=== PATIENT | male | born 1975 | race Caucasian/White ===

== ENCOUNTER 2018-03-08 18:35 | Emergency (ER) | payer MEDICARE, MEDICAID ==
--- NOTE | 2018-03-08 19:01 | EDM.PDOC ---
ED HPI GENERAL MEDICAL PROBLEM - General Chief Complaint: Chest Pain Stated Complaint: ABD AND CHEST [id number] Time Seen by Provider: 03/08/18 18:59 Source of Information: Reports: Patient History Limitations: Reports: No Limitations - History of Present Illness INITIAL COMMENTS - FREE TEXT/NARRATIVE: 4 days h/o bilateral chest pains constant ache non pleuritic, smoker, localized no radiation. appetite normal Abdomen Pain Score (Numeric/FACES): 4 Chest Pain Score (Numeric/FACES): 3 - Related Data Allergies Allergy/AdvReac Type Severity Reaction Status Date / Time Penicillins Allergy Cannot Verified 05/26/16 12:22 Remember Home Meds: Home Meds Ibuprofen 600 mg PO Q8H PRN 03/08/18 [History] diphenhydrAMINE [Benadryl] 25 mg PO Q6H PRN 03/08/18 [History] Past Medical History Other HEENT History: ear surgery to open ear canal Social & Family History - Family History Family Medical History: Noncontributory - Tobacco Use Smoking Status *Q: Current Every Day Smoker Years of Tobacco use: 20 Packs/Tins Daily: 1 - Recreational Drug Use Recreational Drug Use: No - Living Situation & Occupation Living situation: Reports: Single, Alone ED ROS GENERAL - Review of Systems Review Of Systems: ROS reveals no pertinent complaints other than HPI. ED EXAM, GENERAL - Physical Exam Exam: See Below Exam Limited By: No Limitations General Appearance: Alert, WD/WN, No Apparent Distress Ears: Hearing Grossly Normal Throat/Mouth: Normal Voice, No Airway Compromise Head: Atraumatic Neck: Non-Tender, Full Range of Motion Respiratory/Chest: No Respiratory Distress, Lungs Clear, Normal Breath Sounds Cardiovascular: Regular Rate, Rhythm GI/Abdominal: Soft, Non-Tender Extremities: No Pedal Edema Neurological: Alert, Oriented, Normal Cognition, Normal Gait, No Motor/Sensory Deficits Psychiatric: Normal Affect, Normal Mood Skin Exam: Warm, Dry, Normal Color Lymphatic: No Adenopathy Course - Vital Signs Last Recorded V/S: Last Vital Signs Temp 36.7 C 03/08/18 18:42 Pulse 83 03/08/18 19:45 Resp 11 L 03/08/18 19:45 BP 114/69 03/08/18 19:45 Pulse Ox 94 L 03/08/18 19:45 - Orders/Labs/Meds Orders: Active Orders 24 hr Category Date Time Status EKG 12 Lead [EKG Documentation Completion] [RC] STAT Care 03/08/18 18:54 Active Labs: Laboratory Tests 03/08/18 03/08/18 03/08/18 Range/Units 19:01 19:01 19:01 WBC 16.3 H (5.0-10.0) 10^3/uL RBC 5.61 (4.6-6.2) 10^6/uL Hgb 16.4 (14.0-18.0) g/dL Hct 48.3 (40.0-54.0) % MCV 86.1 (80-100) fL MCH 29.2 (27.0-34.0) pg MCHC 34.0 (33.0-35.0) g/dL Plt Count 256 (150-450) 10^3/uL Neut % (Auto) 76.0 H (42.2-75.2) % Lymph % (Auto) 16.7 L (20.5-50.1) % [place] % (Auto) 5.8 (2-8) % Eos % (Auto) 1.3 (1.0-3.0) % Baso % (Auto) 0.2 (0.0-1.0) % D-Dimer, Quantitative 1060 H (0-400) ng/mL Sodium 135 (135-145) mmol/L Potassium 3.7 (3.6-5.0) mmol/L Chloride 97 L (101-111) mmol/L Carbon Dioxide 26.0 (21.0-31.0) mmol/L Anion Gap 15.7 BUN 9 (7-18) mg/dL Creatinine 1.1 (0.6-1.3) mg/dL Est Cr Clr Drug Dosing 93.17 mL/min Estimated GFR (MDRD) > 60 Glucose 104 (74-105) mg/dL Calcium 9.6 (8.4-10.2) mg/dl Troponin I < 0.02 (0.00-0.02) ng/ml Meds: Medications Discontinued Medications Generic Name Dose Route Start Last Admin Trade Name Freq PRN Reason Stop Dose Admin Ceftriaxone Sodium 1 gm 03/08/18 21:04 Rocephin IVPUSH 03/08/18 21:05 ONETIME ONE Iopamidol 100 ml 03/08/18 19:45 03/08/18 19:56 Isovue-370 (76%) IVPUSH 03/08/18 19:46 100 ml ONETIME ONE Administration - Re-Assessments/Exams Free Text/Narrative Re-Assessment/Exam: 03/08/18 19:46 results of d dimer discussed with pt & family. 03/08/18 21:06 x-rays results discussed with mother & pt. Departure - Departure Time of Disposition: 21:07 Disposition: Home, Self-Care 01 Condition: Good Clinical Impression: Atypical chest pain, Bronchitis, Mediastinal lymphadenopathy Leukocytosis, unspecified Qualifiers: Leukocytosis type: other Qualified Code(s): D72.828 - Other elevated white blood cell count Instructions: Upper Respiratory Infection, Adult, [id number] Forms: ED Department Discharge Additional Instructions: 1) cut back on smoking 2) see clinic Saturday for possible MRI SCAN of lungs for mediastinal adenopathy. rx given; keflex 250mg qid x 40 - My Orders Last 24 Hours: My Active Orders 03/08/18 18:54 EKG 12 Lead [EKG Documentation Completion] [RC] STAT - Assessment/Plan Last 24 Hours: My Active Orders 03/08/18 18:54 EKG 12 Lead [EKG Documentation Completion] [RC] STAT
[2018-03-08 19:28] LABS: CHLORIDE,CL 97 mmol/L (101-111); SODIUM,NA 135 mmol/L (135-145)
[2018-03-08] MEDS ORDERED: Iopamidol 755 Mg/ML 100 ML Bottle IVPUSH ONE (19:45)
[2018-03-08 19:57] VITALS: BP 114/69
[2018-03-08] MEDS ORDERED: cefTRIAXone 1 GM Vial IVPUSH ONE (21:04)
== END 2018-03-08 21:15 | disposition home or self-care (01) ==
LOC: DL.ED 18:35
DX: J40 Bronchitis, not specified as acute or chronic (principal); R07.89 Other chest pain; R59.0 Localized enlarged lymph nodes; F17.210 Nicotine dependence, cigarettes, uncomplicated; Z88.0 Allergy status to penicillin
CPT/HCPCS: 36415; 71260; 80048; 84484; 85025; 85379; 93005; 96374; 99285; J0696; Q9967; 93010; 99284

== ENCOUNTER 2018-04-01 22:54 | Emergency (ER) | payer MEDICARE, MEDICAID ==
[2018-04-01 23:23] VITALS: BP 155/85
[2018-04-02 00:34] LABS: ANION GAP 9.9; CHLORIDE,CL 106 mmol/L (101-111); SODIUM,NA 141 mmol/L (135-145)
--- NOTE | 2018-04-02 00:34 | EDM.PDOC ---
ED HPI GENERAL MEDICAL PROBLEM - General Chief Complaint: Respiratory Problem Stated Complaint: CHEST PAIN [id number] Time Seen by Provider: 04/01/18 23:25 Source of Information: Reports: Patient History Limitations: Reports: No Limitations - History of Present Illness INITIAL COMMENTS - FREE TEXT/NARRATIVE: cough productive at times green phlegm, recent URI last dose abx today feels chest discomfort tonight. No fever, No SOB, No fever, No nausea. Onset: Today Upper Abdomen Pain Score (Numeric/FACES): 7 - Related Data Allergies Allergy/AdvReac Type Severity Reaction Status Date / Time Penicillins Allergy Cannot Verified 04/01/18 23:24 Remember Home Meds: Home Meds Ibuprofen 600 mg PO Q8H PRN 03/08/18 [History] diphenhydrAMINE [Benadryl] 25 mg PO Q6H PRN 03/08/18 [History] Past Medical History Other HEENT History: ear surgery to open ear canal Respiratory History: Reports: Bronchitis, Recurrent Social & Family History - Family History Family Medical History: Noncontributory - Tobacco Use Smoking Status *Q: Current Every Day Smoker Years of Tobacco use: 33 Packs/Tins Daily: 30 - Caffeine Use Caffeine Use: Reports: Soda - Recreational Drug Use Recreational Drug Use: No - Living Situation & Occupation Living situation: Reports: Single, Alone ED ROS GENERAL - Review of Systems Review Of Systems: See Below Constitutional: Reports: No Symptoms HEENT: Reports: No Symptoms Respiratory: Reports: Cough. Denies: Wheezing Cardiovascular: Reports: Chest Pain. Denies: Blood Pressure Problem, Dyspnea on Exertion, Lightheadedness, Orthopnea, Palpitations GI/Abdominal: Reports: No Symptoms Musculoskeletal: Reports: No Symptoms Skin: Reports: No Symptoms Neurological: Reports: No Symptoms ED EXAM, GENERAL - Physical Exam Exam: See Below Exam Limited By: No Limitations General Appearance: Alert, Mild Distress Eye Exam: Bilateral Eye: EOMI Ears: Normal External Exam Nose: Normal Inspection Throat/Mouth: Normal Inspection, Normal Voice Head: Atraumatic, Normocephalic Neck: Normal Inspection. No: Lymphadenopathy (L), Lymphadenopathy (R) Respiratory/Chest: No Respiratory Distress, Lungs Clear, Normal Breath Sounds Cardiovascular: Normal Peripheral Pulses, Regular Rate, Rhythm. No: No Edema ( trace pedal) GI/Abdominal: Normal Bowel Sounds, Soft, Non-Tender Back Exam: Normal Inspection Extremities: Normal Inspection, Normal Range of Motion Neurological: Alert, Oriented, Normal Cognition Psychiatric: Normal Affect, Anxious Skin Exam: Warm, Dry, Intact, Normal Color Course - Vital Signs Last Recorded V/S: Last Vital Signs Temp 98.2 F 04/01/18 23:19 Pulse 101 H 04/01/18 23:19 Resp 22 H 04/01/18 23:19 BP 155/85 H 04/01/18 23:19 Pulse Ox 100 04/01/18 23:19 - Orders/Labs/Meds Orders: Active Orders 24 hr Category Date Time Status EKG 12 Lead [EKG Documentation Completion] [RC] URGENT Care 04/01/18 23:01 Active Labs: Laboratory Tests 04/01/18 04/01/18 04/01/18 Range/Units 00:04 00:04 00:04 WBC 17.8 H (5.0-10.0) 10^3/uL RBC 4.97 (4.6-6.2) 10^6/uL Hgb 14.3 D (14.0-18.0) g/dL Hct 43.4 (40.0-54.0) % MCV 87.3 (80-100) fL MCH 28.8 (27.0-34.0) pg MCHC 32.9 L (33.0-35.0) g/dL Plt Count 271 (150-450) 10^3/uL Neut % (Auto) 77.5 H (42.2-75.2) % Lymph % (Auto) 15.2 L (20.5-50.1) % [place] % (Auto) 5.3 (2-8) % Eos % (Auto) 1.8 (1.0-3.0) % Baso % (Auto) 0.2 (0.0-1.0) % D-Dimer, Quantitative (0-400) ng/mL Sodium 141 (135-145) mmol/L Potassium 3.9 (3.6-5.0) mmol/L Chloride 106 (101-111) mmol/L Carbon Dioxide 29.0 (21.0-31.0) mmol/L Anion Gap 9.9 BUN 7 (7-18) mg/dL Creatinine 1.0 (0.6-1.3) mg/dL Est Cr Clr Drug Dosing 102.49 mL/min Estimated GFR (MDRD) > 60 BUN/Creatinine Ratio 7.00 Glucose 93 (74-105) mg/dL Calcium 9.0 (8.4-10.2) mg/dl Total Bilirubin 0.4 (0.2-1.0) mg/dL AST 59 H (10-42) IU/L ALT 36 (10-60) IU/L Alkaline Phosphatase 69 (42-121) IU/L Troponin I < 0.02 (0.00-0.02) ng/ml C-Reactive Protein 1.6 H (0.0-1.3) mg/dL Total Protein 6.7 (6.7-8.2) g/dl Albumin 3.7 (3.2-5.5) g/dl Globulin 3.0 Albumin/Globulin Ratio 1.23 Amylase 45 (28-100) U/L 04/02/18 Range/Units 00:04 WBC (5.0-10.0) 10^3/uL RBC (4.6-6.2) 10^6/uL Hgb (14.0-18.0) g/dL Hct (40.0-54.0) % MCV (80-100) fL MCH (27.0-34.0) pg MCHC (33.0-35.0) g/dL Plt Count (150-450) 10^3/uL Neut % (Auto) (42.2-75.2) % Lymph % (Auto) (20.5-50.1) % [place] % (Auto) (2-8) % Eos % (Auto) (1.0-3.0) % Baso % (Auto) (0.0-1.0) % D-Dimer, Quantitative 134 (0-400) ng/mL Sodium (135-145) mmol/L Potassium (3.6-5.0) mmol/L Chloride (101-111) mmol/L Carbon Dioxide (21.0-31.0) mmol/L Anion Gap BUN (7-18) mg/dL Creatinine (0.6-1.3) mg/dL Est Cr Clr Drug Dosing mL/min Estimated GFR (MDRD) BUN/Creatinine Ratio Glucose (74-105) mg/dL Calcium (8.4-10.2) mg/dl Total Bilirubin (0.2-1.0) mg/dL AST (10-42) IU/L ALT (10-60) IU/L Alkaline Phosphatase (42-121) IU/L Troponin I (0.00-0.02) ng/ml C-Reactive Protein (0.0-1.3) mg/dL Total Protein (6.7-8.2) g/dl Albumin (3.2-5.5) g/dl Globulin Albumin/Globulin Ratio Amylase (28-100) U/L Meds: Medications Discontinued Medications Generic Name Dose Route Start Last Admin Trade Name Merari PRN Reason Stop Dose Admin Levofloxacin/Dextrose 500 mg/ 100 mls @ 100 mls/hr 04/02/18 00:55 04/02/18 01 :02 Premix IV 04/02/18 01:54 Not Given ONETIME ONE Levofloxacin 500 mg 04/02/18 01:02 04/02/18 01:08 Levaquin PO 04/02/18 01:03 500 mg ONETIME ONE Administration - Radiology Interpretation Free Text/Narrative:: CXR negative - Re-Assessments/Exams Free Text/Narrative Re-Assessment/Exam: 04/02/18 07:15 Labs reviewed patient reporting symptoms resolved . Patient and state believe pain to be related to anxiety as symptoms resolve immediately upon hearing positive reports of lab, xray or hear tracing Departure - Departure Time of Disposition: 01:03 Disposition: Home, Self-Care 01 Condition: Good Clinical Impression: Bronchitis Leukocytosis, unspecified Qualifiers: Leukocytosis type: other Qualified Code(s): D72.828 - Other elevated white blood cell count - Discharge Information Instructions: Upper Respiratory Infection, Adult, [id number] Referrals: Lucía Mohamud MD [Primary Care Provider] - Forms: ED Department Discharge Additional Instructions: clinic follow up this week light activity levaquin 500mg daily for 5 days - My Orders Last 24 Hours: My Active Orders 04/01/18 23:01 EKG 12 Lead [EKG Documentation Completion] [RC] URGENT - Assessment/Plan Last 24 Hours: My Active Orders 04/01/18 23:01 EKG 12 Lead [EKG Documentation Completion] [RC] URGENT
[2018-04-02] MEDS ORDERED: Levofloxacin/Dextrose 5%-Water 500 MG in Premix Bag 1 BAG IV ONE (00:55)
[2018-04-02] MEDS ORDERED: Levofloxacin 500 MG Tab PO ONE (01:02)
== END 2018-04-02 01:23 | disposition home or self-care (01) ==
LOC: DL.ED 22:54
DX: J40 Bronchitis, not specified as acute or chronic (principal); D72.828 Other elevated white blood cell count; F17.210 Nicotine dependence, cigarettes, uncomplicated; Z88.0 Allergy status to penicillin
CPT/HCPCS: 36415; 71046; 80053; 82150; 84484; 85025; 85379; 86140; 93005; 93010; 99283; 99285; A9270

== ENCOUNTER 2018-12-22 16:30 | Emergency (ER) | payer MEDICARE, MEDICAID ==
[2018-12-22 16:42] VITALS: BP 147/82
[2018-12-22] MEDS ORDERED: GI Cocktail Oral Solution 30 ML PO ONE (17:20)
--- NOTE | 2018-12-22 17:30 | EDM.PDOC ---
<Bandar Arnold - Last Filed: 12/22/18 20:21> ED HPI GENERAL MEDICAL PROBLEM - General Chief Complaint: Chest Pain Stated Complaint: CHEST PAIN [id number] Time Seen by Provider: 12/22/18 17:00 - Related Data Allergies Allergy/AdvReac Type Severity Reaction Status Date / Time Penicillins Allergy Cannot Verified 04/01/18 23:24 Remember Home Meds: Home Meds Ibuprofen 600 mg PO Q8H PRN 03/08/18 [History] diphenhydrAMINE [Benadryl] 25 mg PO Q6H PRN 03/08/18 [History] Albuterol [Ventolin HFA] 1 puff INH PRN 12/22/18 [History] Course - Vital Signs Last Recorded V/S: Last Vital Signs Temp 36.3 C 12/22/18 16:39 Pulse 86 12/22/18 16:39 Resp 18 12/22/18 16:39 BP 147/82 H 12/22/18 16:39 Pulse Ox 96 12/22/18 16:39 - Orders/Labs/Meds Orders: Active Orders 24 hr Category Date Time Status EKG 12 Lead [EKG Documentation Completion] [RC] URGENT Care 12/22/18 16:46 Active Labs: Laboratory Tests 12/22/18 12/22/18 12/22/18 Range/Units 16:45 16:45 16:45 WBC 17.0 H (5.0-10.0) 10^3/uL RBC 5.31 (4.6-6.2) 10^6/uL Hgb 15.2 (14.0-18.0) g/dL Hct 45.8 (40.0-54.0) % MCV 86.3 (80-100) fL MCH 28.6 (27.0-34.0) pg MCHC 33.2 (33.0-35.0) g/dL Plt Count 298 (150-450) 10^3/uL Neut % (Auto) 84.0 H (42.2-75.2) % Lymph % (Auto) 11.1 L (20.5-50.1) % [place] % (Auto) 4.7 (2-8) % Eos % (Auto) 0.1 L (1.0-3.0) % Baso % (Auto) 0.1 (0.0-1.0) % Sodium 135 (135-145) mmol/L Potassium 3.4 L (3.6-5.0) mmol/L Chloride 100 L (101-111) mmol/L Carbon Dioxide 22.0 (21.0-31.0) mmol/L Anion Gap 16.4 BUN 8 (7-18) mg/dL Creatinine 0.9 (0.6-1.3) mg/dL Est Cr Clr Drug Dosing 112.72 mL/min Estimated GFR (MDRD) > 60 BUN/Creatinine Ratio 8.88 Glucose 127 H (74-105) mg/dL Calcium 9.0 (8.4-10.2) mg/dl Total Bilirubin 0.5 (0.2-1.0) mg/dL AST 27 (10-42) IU/L ALT 20 (10-60) IU/L Alkaline Phosphatase 65 (42-121) IU/L Troponin I < 0.02 (0.00-0.02) ng/ml C-Reactive Protein 1.2 (0.0-1.3) mg/dL Total Protein 7.3 (6.7-8.2) g/dl Albumin 3.9 (3.2-5.5) g/dl Globulin 3.4 Albumin/Globulin Ratio 1.15 Urine Color (YELLOW) Urine Appearance (CLEAR) Urine pH (5.0-9.0) Ur Specific [place] (1.005-1.030) Urine Protein (NEGATIVE) Urine Glucose (UA) (NEGATIVE) Urine Ketones (NEGATIVE) Urine Occult Blood (NEGATIVE) Urine Nitrite (NEGATIVE) Urine Bilirubin (NEGATIVE) Urine Urobilinogen (0.2-1.0) mg/dL Ur Leukocyte Esterase (NEGATIVE) Urine RBC /HPF Urine WBC (0-5/HPF) /HPF Ur Epithelial Cells /HPF Urine Bacteria (0-FEW/HPF) /HPF Urine Mucus /LPF 12/22/18 Range/Units 17:58 WBC (5.0-10.0) 10^3/uL RBC (4.6-6.2) 10^6/uL Hgb (14.0-18.0) g/dL Hct (40.0-54.0) % MCV (80-100) fL MCH (27.0-34.0) pg MCHC (33.0-35.0) g/dL Plt Count (150-450) 10^3/uL Neut % (Auto) (42.2-75.2) % Lymph % (Auto) (20.5-50.1) % [place] % (Auto) (2-8) % Eos % (Auto) (1.0-3.0) % Baso % (Auto) (0.0-1.0) % Sodium (135-145) mmol/L Potassium (3.6-5.0) mmol/L Chloride (101-111) mmol/L Carbon Dioxide (21.0-31.0) mmol/L Anion Gap BUN (7-18) mg/dL Creatinine (0.6-1.3) mg/dL Est Cr Clr Drug Dosing mL/min Estimated GFR (MDRD) BUN/Creatinine Ratio Glucose (74-105) mg/dL Calcium (8.4-10.2) mg/dl Total Bilirubin (0.2-1.0) mg/dL AST (10-42) IU/L ALT (10-60) IU/L Alkaline Phosphatase (42-121) IU/L Troponin I (0.00-0.02) ng/ml C-Reactive Protein (0.0-1.3) mg/dL Total Protein (6.7-8.2) g/dl Albumin (3.2-5.5) g/dl Globulin Albumin/Globulin Ratio Urine Color Yellow (YELLOW) Urine Appearance Clear (CLEAR) Urine pH 5.5 (5.0-9.0) Ur Specific [place] >= 1.030 (1.005-1.030) Urine Protein Trace H (NEGATIVE) Urine Glucose (UA) Negative (NEGATIVE) Urine Ketones Negative (NEGATIVE) Urine Occult Blood Negative (NEGATIVE) Urine Nitrite Negative (NEGATIVE) Urine Bilirubin Negative (NEGATIVE) Urine Urobilinogen 0.2 (0.2-1.0) mg/dL Ur Leukocyte Esterase Negative (NEGATIVE) Urine RBC 0-5 /HPF Urine WBC 0-5 (0-5/HPF) /HPF Ur Epithelial Cells Occasional /HPF Urine Bacteria Few (0-FEW/HPF) /HPF Urine Mucus Few H /LPF Meds: Medications Discontinued Medications Generic Name Dose Route Start Last Admin Trade Name Freq PRN Reason Stop Dose Admin Al Hydroxide/Mg Hydroxide 30 ml 12/22/18 17:20 12/22/18 17:32 Gi Cocktail PO 12/22/18 17:21 30 ml ONETIME ONE Administration Departure - Departure Time of Disposition: 20:21 Disposition: Home, Self-Care 01 Condition: Fair Clinical Impression: Cholecystitis Referrals: Lucía Mohamud MD [Physician] - Forms: ED Department Discharge Care Plan Goals: The patient was advised of the examination, lab and ultrasound results during the visit. The patient spoke with Dr. Mclaughlin (Surgery) here at [facility] in [place] regarding surgical intervention. The patient will be called with instructions for surgery on Saturday. If the patient has any additional symptoms or concerns, the patient should either return to the emergency department or visit his primary care facility. - My Orders Last 24 Hours: My Active Orders 12/22/18 16:46 EKG 12 Lead [EKG Documentation Completion] [RC] URGENT - Assessment/Plan Last 24 Hours: My Active Orders 12/22/18 16:46 EKG 12 Lead [EKG Documentation Completion] [RC] URGENT <Feliz Bañuelos - Last Filed: 12/23/18 07:30> ED HPI GENERAL MEDICAL PROBLEM - General Source of Information: Reports: Patient History Limitations: Reports: No Limitations - History of Present Illness INITIAL COMMENTS - FREE TEXT/NARRATIVE: Patient comes emergency department today with complaints of right lateral chest pain that has been going on since about 8:00 this morning. The patient woke with a constant pressure type sensation in the right lateral aspect of his chest. Really does not get worse with deep breath cough or movement. He also complains of some abdominal pain. No nausea no vomiting. No shortness of breath or difficulty breathing. No diaphoresis. No palpitations. No weakness dizziness lightheadedness. He has had similar episodes of this over the past couple of years and that concerns for his gallbladder although he's never had it evaluated. He's had no hematochezia. No diarrhea no melena no black tarry stools. No surgeries on his abdomen. No recent trauma to his chest or injury. No cough or congestion. No fever or chills. Chest Pain Score (Numeric/FACES): 8 Past Medical History HEENT History: Reports: Impaired Vision Other HEENT History: ear surgery to open ear canal Cardiovascular History: Reports: None Respiratory History: Reports: Bronchitis, Recurrent Gastrointestinal History: Reports: None Genitourinary History: Reports: None Musculoskeletal History: Reports: None Neurological History: Reports: None Psychiatric History: Reports: Anxiety Endocrine/Metabolic History: Reports: None Hematologic History: Reports: None Immunologic History: Reports: None Oncologic (Cancer) History: Reports: None Dermatologic History: Reports: None - Infectious Disease History Infectious Disease History: Reports: None - Past Surgical History Head Surgeries/Procedures: Reports: None Social & Family History - Family History Family Medical History: Noncontributory - Tobacco Use Smoking Status *Q: Current Every Day Smoker Years of Tobacco use: 25 Packs/Tins Daily: 1 - Caffeine Use Caffeine Use: Reports: Soda - Recreational Drug Use Recreational Drug Use: No - Living Situation & Occupation Living situation: Reports: Single, Alone ED ROS GENERAL - Review of Systems Review Of Systems: ROS reveals no pertinent complaints other than HPI. ED EXAM, GENERAL - Physical Exam Exam: See Below Exam Limited By: No Limitations General Appearance: Alert, WD/WN, No Apparent Distress Eye Exam: Bilateral Eye: Normal Inspection Ears: Normal External Exam Nose: Normal Inspection Throat/Mouth: Normal Inspection Head: Atraumatic, Normocephalic Neck: Normal Inspection, Supple, Non-Tender Respiratory/Chest: No Respiratory Distress, Lungs Clear, Normal Breath Sounds, No Accessory Muscle Use, Chest Non-Tender, Other (No bruising swelling ecchymosis bony deformities are concerns of trauma to the thorax.) Cardiovascular: Normal Peripheral Pulses, Regular Rate, Rhythm, No Edema Peripheral Pulses: 2+: Radial (L), Radial (R), Posterior Tibial (L), Posterior Tibial (R), Dorsalis Pedis (L), Dorsalis Pedis (R) GI/Abdominal: Normal Bowel Sounds, Soft, Guarding (RUQ), Tender (Right upper quadrant). No: Distended, Rigid, Rebound, Hernia, Mass Back Exam: Normal Inspection Extremities: Normal Inspection, Normal Range of Motion, Normal Capillary Refill Neurological: Alert, Oriented, Normal Cognition, Normal Gait, No Motor/Sensory Deficits Psychiatric: Normal Affect, Normal Mood Skin Exam: Warm, Dry, Intact, Normal Color, No Rash Lymphatic: No Adenopathy EKG INTERPRETATION EKG Date: 12/22/18 Time: 16:40 Rhythm: NSR Rate (Beats/Min): 85 [place]: Normal P-Wave: Present QRS: Normal ST-T: Normal QT: Normal Course - Orders/Labs/Meds Labs: Laboratory Tests 12/22/18 12/22/18 12/22/18 Range/Units 16:45 16:45 16:45 WBC 17.0 H (5.0-10.0) 10^3/uL RBC 5.31 (4.6-6.2) 10^6/uL Hgb 15.2 (14.0-18.0) g/dL Hct 45.8 (40.0-54.0) % MCV 86.3 (80-100) fL MCH 28.6 (27.0-34.0) pg MCHC 33.2 (33.0-35.0) g/dL Plt Count 298 (150-450) 10^3/uL Neut % (Auto) 84.0 H (42.2-75.2) % Lymph % (Auto) 11.1 L (20.5-50.1) % [place] % (Auto) 4.7 (2-8) % Eos % (Auto) 0.1 L (1.0-3.0) % Baso % (Auto) 0.1 (0.0-1.0) % Sodium 135 (135-145) mmol/L Potassium 3.4 L (3.6-5.0) mmol/L Chloride 100 L (101-111) mmol/L Carbon Dioxide 22.0 (21.0-31.0) mmol/L Anion Gap 16.4 BUN 8 (7-18) mg/dL Creatinine 0.9 (0.6-1.3) mg/dL Est Cr Clr Drug Dosing 112.72 mL/min Estimated GFR (MDRD) > 60 BUN/Creatinine Ratio 8.88 Glucose 127 H (74-105) mg/dL Calcium 9.0 (8.4-10.2) mg/dl Total Bilirubin 0.5 (0.2-1.0) mg/dL AST 27 (10-42) IU/L ALT 20 (10-60) IU/L Alkaline Phosphatase 65 (42-121) IU/L Troponin I < 0.02 (0.00-0.02) ng/ml C-Reactive Protein 1.2 (0.0-1.3) mg/dL Total Protein 7.3 (6.7-8.2) g/dl Albumin 3.9 (3.2-5.5) g/dl Globulin 3.4 Albumin/Globulin Ratio 1.15 Urine Color (YELLOW) Urine Appearance (CLEAR) Urine pH (5.0-9.0) Ur Specific [place] (1.005-1.030) Urine Protein (NEGATIVE) Urine Glucose (UA) (NEGATIVE) Urine Ketones (NEGATIVE) Urine Occult Blood (NEGATIVE) Urine Nitrite (NEGATIVE) Urine Bilirubin (NEGATIVE) Urine Urobilinogen (0.2-1.0) mg/dL Ur Leukocyte Esterase (NEGATIVE) Urine RBC /HPF Urine WBC (0-5/HPF) /HPF Ur Epithelial Cells /HPF Urine Bacteria (0-FEW/HPF) /HPF Urine Mucus /LPF 12/22/18 Range/Units 17:58 WBC (5.0-10.0) 10^3/uL RBC (4.6-6.2) 10^6/uL Hgb (14.0-18.0) g/dL Hct (40.0-54.0) % MCV (80-100) fL MCH (27.0-34.0) pg MCHC (33.0-35.0) g/dL Plt Count (150-450) 10^3/uL Neut % (Auto) (42.2-75.2) % Lymph % (Auto) (20.5-50.1) % [place] % (Auto) (2-8) % Eos % (Auto) (1.0-3.0) % Baso % (Auto) (0.0-1.0) % Sodium (135-145) mmol/L Potassium (3.6-5.0) mmol/L Chloride (101-111) mmol/L Carbon Dioxide (21.0-31.0) mmol/L Anion Gap BUN (7-18) mg/dL Creatinine (0.6-1.3) mg/dL Est Cr Clr Drug Dosing mL/min Estimated GFR (MDRD) BUN/Creatinine Ratio Glucose (74-105) mg/dL Calcium (8.4-10.2) mg/dl Total Bilirubin (0.2-1.0) mg/dL AST (10-42) IU/L ALT (10-60) IU/L Alkaline Phosphatase (42-121) IU/L Troponin I (0.00-0.02) ng/ml C-Reactive Protein (0.0-1.3) mg/dL Total Protein (6.7-8.2) g/dl Albumin (3.2-5.5) g/dl Globulin Albumin/Globulin Ratio Urine Color Yellow (YELLOW) Urine Appearance Clear (CLEAR) Urine pH 5.5 (5.0-9.0) Ur Specific [place] >= 1.030 (1.005-1.030) Urine Protein Trace H (NEGATIVE) Urine Glucose (UA) Negative (NEGATIVE) Urine Ketones Negative (NEGATIVE) Urine Occult Blood Negative (NEGATIVE) Urine Nitrite Negative (NEGATIVE) Urine Bilirubin Negative (NEGATIVE) Urine Urobilinogen 0.2 (0.2-1.0) mg/dL Ur Leukocyte Esterase Negative (NEGATIVE) Urine RBC 0-5 /HPF Urine WBC 0-5 (0-5/HPF) /HPF Ur Epithelial Cells Occasional /HPF Urine Bacteria Few (0-FEW/HPF) /HPF Urine Mucus Few H /LPF - Radiology Interpretation Free Text/Narrative:: CXR normal per radiology. - Re-Assessments/Exams Free Text/Narrative Re-Assessment/Exam: 12/22/18 1900 The patient's right upper quadrant/chest pain resolved after the GI cocktail. Will have concerns for acute cholecystitis with elevation of the white count. We will order a right upper quadrant ultrasound. Care of this patient was transferred to Bandar Pike PA-C at this time. Disposition and planning by Bandar Pike PA-C
[2018-12-22 17:41] LABS: ANION GAP 16.4; CHLORIDE,CL 100 mmol/L (101-111); SODIUM,NA 135 mmol/L (135-145)
--- NOTE | 2018-12-23 02:44 | HP ---
Preoperative history and physical HISTORY OF PRESENT ILLNESS: I was called to the emergency room to see this 43- year-old male, who had significant right upper quadrant abdominal pain. He has had several episodes of this. This one has lasted at least all day. He has been in the emergency room multiple times for the same thing. He has not had any prior workup particularly for this. Ultrasound done in the emergency room shows a gallbladder that is half packed full of stones with extensive shadowing of the gallbladder, does not appear to be thick walled or pericholecystic fluid. PAST MEDICAL HISTORY: ALLERGIES: The patient has allergies to penicillin. CURRENT MEDICATIONS: Inhalers as needed, and anxiety medication. PAST SURGICAL HISTORY: Prior surgeries include tonsillectomy and left ear surgery, otherwise negative. FAMILY HISTORY AND SOCIAL HISTORY: The patient is dependent person. He lives at home with his mother. She is the guardian. He does smoke. Does not work or go to school. REVIEW OF SYSTEMS: Lungs: Positive for COPD or asthma occasionally. Cardiovascular: Normal. PHYSICAL EXAMINATION: HEENT: Normal. Chest: Lungs are clear bilaterally. Heart: Normal sinus rhythm. Abdomen: Mildly obese, currently nontender. No masses or hernias are noted. Extremities: Normal. Neurologic: Intact. ASSESSMENT: Acute cholecystitis and cholelithiasis. PLAN: This attack seems to be subsided by now, but since he has been in the emergency room several times for the same thing, I recommended laparoscopic cholecystectomy. He lives here in [place]. He is in the emergency room here with his mother and I discussed the options with her. We will proceed with surgery on 12/24/2018. [facility] /[id number]
== END 2018-12-22 20:45 | disposition home or self-care (01) ==
LOC: DL.ED 16:30
DX: K80.10 Calculus of gallbladder with chronic cholecystitis without obstruction (principal); F17.210 Nicotine dependence, cigarettes, uncomplicated
CPT/HCPCS: 36415; 71046; 76705; 80053; 81001; 84484; 85025; 86140; 93005; 99285; A9270

== ENCOUNTER 2018-12-24 10:10 | Observation (INO) | payer MEDICARE, MEDICAID ==
[2018-12-24] MEDS ORDERED: Lactated Ringers 1,000 ML IV SCH (11:00)
[2018-12-24] MEDS ORDERED: Clindamycin Phosphate 600 MG in Sodium Chloride 0.9% 100 ML IV ONE (12:02)
[2018-12-24] MEDS ORDERED: Clindamycin Phosphate 600 MG/4 ML SDV ONE (12:02)
[2018-12-24] MEDS ORDERED: Sodium Chloride 0.9% 100 ML ONE (12:02)
[2018-12-24] MEDS ORDERED: Ondansetron 4 MG/2 ML SDV IVPUSH PRN (14:22)
[2018-12-24] MEDS ORDERED: Morphine 2 MG/ML Syringe IVPUSH PRN (14:22)
[2018-12-24] MEDS ORDERED: Sodium Chloride 0.9% 10 ML Syringe FLUSH PRN (14:29)
[2018-12-24] MEDS ORDERED: Dexamethasone 4 MG/ML SDV IV ONE (14:42)
[2018-12-24] MEDS ORDERED: fentaNYL 250 MCG/5 ML SDV IV ONE (14:42)
[2018-12-24] MEDS ORDERED: Neostigmine Methylsulfate 10 MG/10 ML MDV IV ONE (14:42)
[2018-12-24] MEDS ORDERED: Propofol 200 MG/20 ML SDV IV ONE (14:42)
[2018-12-24] MEDS ORDERED: Rocuronium 100 MG/10 ML MDV IV ONE (14:42)
[2018-12-24] MEDS ORDERED: Glycopyrrolate 0.2 MG/ML 2 ML SDV IV ONE (14:42)
[2018-12-24] MEDS ORDERED: Lidocaine 2% 20 ML MDV INJECT ONE (14:42)
[2018-12-24] MEDS ORDERED: Midazolam 1 MG/ML 2 ML SDV IV ONE (14:42)
[2018-12-24] MEDS ORDERED: Ketorolac 30 MG/ML SDV IVPUSH ONE (14:42)
[2018-12-24] MEDS ORDERED: fentaNYL 100 MCG/2 ML SDV IV ONE (14:42)
--- NOTE | 2018-12-24 15:20 | OR ---
DATE: 12/24/2018 PREOPERATIVE DIAGNOSIS: Acute cholecystitis with cholelithiasis. POSTOPERATIVE DIAGNOSIS: Acute cholecystitis with cholelithiasis. PROCEDURE: Laparoscopic cholecystectomy. ANESTHESIA: General. ESTIMATED BLOOD LOSS: Minimum. SPECIMEN: Gallbladder and stones. INDICATION FOR PROCEDURE: This 43-year-old male was seen in the emergency room 2 days ago with [id number] right upper quadrant abdominal pain. Ultrasound showed multiple stones within the gallbladder. He has had known stones for some time. OPERATIVE FINDINGS: Acute cholecystitis with markedly thickened gallbladder wall and the lumen of the gallbladder packed with small stones. PROCEDURE IN DETAIL: After adequate preparation, an infraumbilical incision was made. A Veress needle placed intra-abdominally for insufflation. This was then exchanged for a 5 mm trocar. Examination of the abdomen appeared to be normal. Three other upper trocars were placed under direct vision. The gallbladder was identified and was markedly distended and thick walled. I was unable to grab it with my standard graspers. An aspiration needle was used, and 60 mL of dark green bile was aspirated from the gallbladder. This allowed me to grab on to the gallbladder and elevate it. I had to place 1 extra trocar to be able to retract the transverse mesocolon down to visualize the Sydnie pouch. By cautery dissection, the omentum was taken off the gallbladder, and this was peeled down to Sydnie's pouch. At that point, around Sydnie's pouch, there were some dense adhesions of fatty tissue and omentum. These were taken down off the Sydnie pouch to then expose the inferior surface of the of the pouch next to the gallbladder, and I could not find a cystic duct. This, however, must have been transected with the omental fat pad, and a stapling device was used to staple across the extra tissue that the cystic duct must have been located in. The gallbladder was then taken off the liver bed using blunt, sharp, and Bovie dissection. This was placed within a sterile retrieval bag and brought out through by extending the epigastric trocar incision, which was then re-closed using 2 [id number] 0 Vicryl sutures. The abdomen was re- insufflated. A Alex-Glass drain was placed in the bed of the liver and down around where the cystic duct would be to evacuate any hematoma or possible bile leak. The drain was brought out through the right-sided trocar site. The abdomen was then desufflated, and the skin was closed with Monocryl. The patient was taken to the recovery room. [facility] /[id number]
[2018-12-24] MEDS: Acetaminophen/oxyCODONE 325-5 MG Tab PO PRN ×2 (15:58→20:49)
[2018-12-25] MEDS: Acetaminophen/oxyCODONE 325-5 MG Tab PO PRN ×3 (05:54→20:56)
[2018-12-26 07:55] VITALS: BP 110/62
--- NOTE | 2018-12-26 08:16 | PCM.SN ---
- Free Text/Narrative Note: Stable POD#2. Pain controlled. PO adequate. Drain clear. Wounds clean and dry. Can discharge today. FU with PCP if any concerns. No restrictions on diet or activity. Percocet (#20) given for pain.
== END 2018-12-26 09:05 | disposition home or self-care (01) ==
LOC: DL.SDS 10:10 → EDSTATUS 11:00 → DL.MS 14:22 → DL.SDS 14:41 → DL.MS 14:41
PROVIDERS: ADMIT Surgery; ATTEND Surgery
DX: K80.12 Calculus of gallbladder with acute and chronic cholecystitis without obstruction (principal); J44.9 Chronic obstructive pulmonary disease, unspecified; F17.210 Nicotine dependence, cigarettes, uncomplicated; F41.9 Anxiety disorder, unspecified; E66.9 Obesity, unspecified; Z68.37 Body mass index [BMI] 37.0-37.9, adult; Z88.0 Allergy status to penicillin; Z79.899 Other long term (current) drug therapy
CPT/HCPCS: 00790; 47562; A9270; G0378; J1100; J1885; J2001; J2250; J2704; J2710; J3010; J3490; J7050; J7120; 88304

== ENCOUNTER 2024-03-20 15:24 | Emergency (ER) | payer MEDICARE, MEDICAID ==
[2024-03-20 18:14] VITALS: BP 140/93; PULSE 74
== END 2024-03-20 18:12 | disposition home or self-care (01) ==
LOC: DL.ED 15:24
DX: I87.2 Venous insufficiency (chronic) (peripheral) (principal); F17.210 Nicotine dependence, cigarettes, uncomplicated; E66.9 Obesity, unspecified; Z68.43 Body mass index [BMI] 50.0-59.9, adult; Z86.16 Personal history of COVID-19; Z88.0 Allergy status to penicillin; Z91.038 Other insect allergy status
CPT/HCPCS: 99283